=== PATIENT | male | born 1955 | race African-American/Black ===

== ENCOUNTER 2020-08-06 13:18 | Inpatient (IN) | payer MEDICAID, MEDICARE ==
[~2020-08-06] VITALS: Ht 170.2 cm; Wt 63.7 kg
[2020-08-06] MEDS ORDERED: SODIUM CHLORIDE 0.9% 1,000 ML IV ONE (13:30)
[2020-08-06 15:23] LABS: BASOPHILS % 0.6 % (0.0-2.0); EOSINOPHILS % 0.3 % (0.0-5.0); HEMATOCRIT. 38.3 % (42.0-52.0); HEMOGLOBIN. 12.7 g/dL (14.0-18.0); LYMPHOCYTES % 21.6 % (20.0-50.0); MEAN CORPUSCULAR HEMOGLOBIN 28.4 pg (28.0-32.0); MEAN CORPUSCULAR VOLUME 85.6 fL (80.0-94.0); MEAN PLATELET VOLUME 7.3 fl (7.4-10.4); MONOCYTES % 9.3 % (2.0-8.0); NEUTROPHILS % 68.2 % (40.0-76.0); PLATELET 196 x1000/uL (130-400); RED BLOOD CELL COUNT 4.47 mill/uL (4.7-6.1)
[2020-08-06 15:27] LABS: CHLORIDE 109 mEq/L (98-107)
[2020-08-06 15:35] LABS: ETHANOL BLOOD < 10 mg/dL
[2020-08-06 16:48] LABS: CLARITY URINE CLEAR (CLEAR); COLOR URINE YELLOW (YELLOW); KETONES URINE NEGATIVE (NEGATIVE); LEUKOCYTE ESTERASE URINE TRACE (NEGATIVE); NITRITE URINE NEGATIVE (NEGATIVE); OCCULT BLOOD URINE NEGATIVE (NEGATIVE); PH URINE 6.5 (4.5-8.0); PROTEIN URINE NEGATIVE (NEGATIVE); SPECIFIC GRAVITY URINE 1.011 (1.005-1.030)
[2020-08-06 18:04] LABS: *AMPHETAMINES SCREEN URINE NEGATIVE (NEGATIVE); *BARBITURATES SCREEN URINE NEGATIVE (NEGATIVE); *BENZODIAZEPINES SCREEN URINE NEGATIVE (NEGATIVE); *COCAINE SCREEN URINE NEGATIVE (NEGATIVE)
[2020-08-06 18:05] LABS: CANNABINOID URINE SCREEN PRESUMTIVE POSITIVE (NEGATIVE); METHADONE URINE SCREEN NEGATIVE (NEGATIVE); OPIATES URINE SCREEN NEGATIVE (NEGATIVE); PHENCYCLIDINE URINE SCREEN NEGATIVE (NEGATIVE)
[2020-08-06 22:00] VITALS: BP 106/59
[2020-08-06] MEDS ORDERED: GABA800T97 MT (22:36)
[2020-08-07] VITALS (8 sets, daily range): BP systolic 105–121; BP diastolic 58–80
[2020-08-07] MEDS: GABAPENTIN 300MG CAPSULE PO SCH ×3 (06:37→20:31)
[2020-08-07] MEDS: ENOXAPARIN 40MG/0.4ML SYR SUBCUT SCH (09:10)
[2020-08-07] MEDS: ASPIRIN 325MG EC TABLET PO SCH (09:11)
[2020-08-07] MEDS ORDERED: TRAZODONE HCL 50MG TABLET PO SCH (21:00)
[2020-08-08] VITALS: BP_SYST 110; BP_SYST 115; BP_DIAS 66; BP_DIAS 69; BP_DIAS 73
[2020-08-08 04:00] VITALS: BP 109/59
[2020-08-08] MEDS: GABAPENTIN 300MG CAPSULE PO SCH (06:54)
[2020-08-08 08:00] VITALS: BP 113/65
[2020-08-08] MEDS: ASPIRIN 325MG EC TABLET PO SCH (09:02)
[2020-08-08] MEDS: ENOXAPARIN 40MG/0.4ML SYR SUBCUT SCH (09:02)
[2020-08-08 12:00] VITALS: BP_SYST 102; BP_SYST 112; BP_SYST 118; BP_DIAS 70; BP_DIAS 74; BP_DIAS 75
[2020-08-08 13:21] VITALS: BP 112/74
== END 2020-08-08 13:50 | disposition home or self-care (01) | DRG 48 ==
LOC: ER 13:18 → 6WST 16:29 → EDBEDREQ 16:33 → ENRESERV 19:30
PROVIDERS: ADMIT Internal Medicine; ATTEND Internal Medicine
DX: G90.8 Other disorders of autonomic nervous system (principal); F12.929 Cannabis use, unspecified with intoxication, unspecified; F17.200 Nicotine dependence, unspecified, uncomplicated; R00.1 Bradycardia, unspecified; F10.10 Alcohol abuse, uncomplicated; D64.9 Anemia, unspecified; E87.8 Other disorders of electrolyte and fluid balance, not elsewhere classified; F12.90 Cannabis use, unspecified, uncomplicated; F17.210 Nicotine dependence, cigarettes, uncomplicated; I10 Essential (primary) hypertension; J98.4 Other disorders of lung; R57.9 Shock, unspecified; Z71.6 Tobacco abuse counseling
CPT/HCPCS: 36415; 70551; 71045; 80053; 80305; 80320; 81003; 82962; 83880; 84484; 85025; 93005; 93306; 93880; 97162; 99291; J1650; J7030; G0480